=== PATIENT | female | born 1975 | race Caucasian/White ===

== ENCOUNTER 2023-09-28 22:18 | Emergency (ER) | payer OTHER, MEDICAID, SELFPAY ==
[2023-09-28 22:24] VITALS: BP 175/94; PULSE 85; RESP 16; TEMP 36.1; O2SAT 99
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
== END 2023-09-28 22:43 | disposition home or self-care (01) ==
LOC: ED 22:39
PROVIDERS: Emergency Provider Emergency Medicine
DX: Z02.89 Encounter for other administrative examinations (principal); F10.129 Alcohol abuse with intoxication, unspecified
CPT/HCPCS: 99281; 99282